=== PATIENT | female | born 1955 | race Caucasian/White ===

== ENCOUNTER → 2017-02-21 | Outpatient (CLI) | payer MEDICAID ==
[~2017-02-21] MED LIST: CIPRO 500MG TA500 MG PO; NOMEDS; PEN-VK500 MG PO; PHENERGAN 25MG.25 M1 PO; PYRIDIUM100 M1 PO; TYLENOL W/CODEI1 TA1 PO
--- NOTE | 2017-02-28 08:43 | RADIOLOGY REPORT PS360 ---
DIG MAMM-SCREEN MARIANELA W/CAD CAD Screening COMPARISON: None, patient had mammograms more than 10 years ago but not sure where there were done INDICATION: There is a history of breast cancer in the patient's paternal cousin TECHNIQUE: Standard CC and MLO images were obtained. R2 CAD reviewed. FINDINGS: Moderate fibroglandular densities are seen in the central portions and subareolar regions of both breasts. There is an asymmetric density right breast best seen on MLO projection with somewhat irregular borders and possibly seen on the cc view as well which I have highlighted on the image. There is a benign-appearing calcination right breast. There are no suspicious microcalcifications. IMPRESSION: Fibrofatty parenchyma with slightly suspicious asymmetric density right breast recommend the patient return for spot compression MLO and CC views and ultrasound for additional evaluation BI-RADS CATEGORY: 0_Incomplete: Need additional imaging RECOMMENDED FOLLOWUP: ADD ADDITIONAL IMAGING (A letter has been sent to the patient regarding results of the study.)
== END ==
LOC: RAD 14:36
DX: Z12.31 Encounter for screening mammogram for malignant neoplasm of breast (principal)
CPT/HCPCS: G0202

== ENCOUNTER → 2017-03-12 | Outpatient (CLI) | payer MEDICAID ==
--- NOTE | 2017-03-12 14:46 | RADIOLOGY REPORT PS360 ---
EXAM: CERVICAL SPINE 4 OR 5 VIEWS HISTORY: NECK PAIN ORDERING PHYSICIAN: MARKUS BOLES PATIENT AGE: 61 years COMPARISON: None FINDINGS: Normal alignment. No fracture or dislocation. There is exaggeration of the cervical lordosis. Foraminal narrowing is present on the left at C3-C4. The right foramina are not well displayed. Mild facet arthritic changes are present. The disc spaces are well-preserved. There may be partial fusion of the facets on the right at C2-C3. IMPRESSION: 1. Mild facet arthritic change with narrowing of the left C3-C4 foramen. 2. Possible partial fusion of the posterior elements on the right at C2-C3 which could be confirmed with CT or MRI clinically warranted
--- NOTE | 2017-03-12 14:47 | RADIOLOGY REPORT PS360 ---
EXAM: THORACIC SPINE-3V SWIMMERS HISTORY: MID BACK PAIN COMPARISON: None FINDINGS: Normal alignment. No fracture or dislocation. No lytic or blastic change. There is mild exaggeration of the thoracic kyphosis with mild degenerative disc disease in mid thoracic spine IMPRESSION: Mild degenerative change, no acute finding
--- NOTE | 2017-03-12 15:01 | RADIOLOGY REPORT PS360 ---
EXAM: LUMBAR SPINE 5 VIEWS HISTORY: MID BACK PAIN ORDERING PHYSICIAN: MARKUS BOELS PATIENT AGE: 61 years COMPARISON: None FINDINGS: Normal alignment. No fracture or dislocation. No lytic or blastic change. There is 3 mm anterolisthesis of L4 on L5. Mild degenerative disc disease is present at L5-S1. Mild facet arthritic changes are also present at L4-5 and L5-S1. IMPRESSION: 1. No acute finding. 2. Lumbar spondylosis with degenerative disc disease at L5-S1 and facet arthritic change at L4-5 and L5-S1
--- NOTE | 2017-03-12 15:01 | RADIOLOGY REPORT PS360 ---
EXAM: LUMBAR SPINE 5 VIEWS HISTORY: MID BACK PAIN ORDERING PHYSICIAN: MARKUS BOLES PATIENT AGE: 61 years COMPARISON: None FINDINGS: Normal alignment. No fracture or dislocation. No lytic or blastic change. There is 3 mm anterolisthesis of L4 on L5. Mild degenerative disc disease is present at L5-S1. Mild facet arthritic changes are also present at L4-5 and L5-S1. IMPRESSION: 1. No acute finding. 2. Lumbar spondylosis with degenerative disc disease at L5-S1 and facet arthritic change at L4-5 and L5-S1
--- NOTE | 2017-03-13 12:39 | RADIOLOGY REPORT PS360 ---
DIG MAMM-DX UNI A/VW-RT W/CAD, US BREAST-RT COMPLETE W/AXILLA COMPARISON: 02/21/2017 INDICATION: Follow-up abnormal mammogram ORDERING PHYSICIAN: MARKUS BOLES PATIENT AGE: 61 years TECHNIQUE: Spot compression views performed along with right breast ultrasound FINDINGS: Scattered fibronodular densities are present in the retroareolar region along with probably benign calcifications. The asymmetric density in the medial aspect of the right breast does appear to compress out as fibroglandular tissue. There was some minimal nodularity in the inferior retroareolar region at 6:00 which does appear to at least partially compress out and is probably related to underlying fibroglandular tissue. No sonographic abnormalities detected in this region. Right breast ultrasound: No sonographic abnormality is apparent. IMPRESSION: Asymmetric density in the medial aspect of the right breast does appear to compress out as fibroglandular tissue. There is some nodularity in the retroareolar region probably benign with no sonographic correlate. BI-RADS CATEGORY: 3_Probably Benign-Short Term F/U RECOMMENDED FOLLOWUP: 6 month mammographic and sonographic follow-up of the right breast (A letter has been sent to the patient regarding results of the study.)
== END ==
LOC: RAD 03-10 13:45
DX: R92.8 Other abnormal and inconclusive findings on diagnostic imaging of breast (principal); M54.2 Cervicalgia; M54.6 Pain in thoracic spine; M54.5 Low back pain
CPT/HCPCS: G0206-RT

== ENCOUNTER → 2017-06-20 | Outpatient (CLI) | payer MEDICAID ==
--- NOTE | 2017-06-22 10:12 | RADIOLOGY REPORT PS360 ---
MRI-C-SPINE W/O, MRI-3D RENDERING/MYELOGRAM HISTORY: NECK PAIN 10 years neck pain and bilateral shoulder and upper back numbness headache. Pain and popping with turning head. Patient Age: 61 years: Female Ordering Physician: MARKUS BOLES TECHNIQUE: Sagittal STIR, T1, T2, axial T1 and T2. On 1.5T Siemens wide bore MRI. 3-D MR myelogram image set obtained & performed on MRI workstation. Additional sagittal thin section T2 weighted dataset obtained from this latter acquisition as well (---76 CPT) COMPARISON :Plain films cervical spine 03/12/2017. FINDINGS The vertebral bodies appear intact and after the disc spaces are fairly well-maintained throughout the Generous volume underlying osseous cervical spinal canal. Generous cervical lordosis with normal caliber and signal at the cervical cord. Cranial cervical junction is normal. Mild degenerative facet changes at the cervical spine. On recent plain films are was question regarding possible fusion C2/3 facets-but on these MR images I these facets appear discrete and are not fused. At C2/3 there is minor posterior endplate hypertrophic ridging to the left, which only slightly indents the thecal sac the left.. Minor encroachment at the entry left foramen.. Mild prominence of posterior elements slightly indents thecal sac and impinge upon posterior cord At C3/4 mild degenerative disc space narrowing posteriorly but no significant hypertrophic ridging or spondylosis.. Posterior element hypertrophy does indent indents the posterior aspect of thecal sac.. At this level. This is nicely reflected on the 3-D MR myelogram image set Mild left foraminal encroachment due to the facet hypertrophy and perhaps scant posterior spurring at foramen which is actually best seen on plain film more than this MR. C4/5 disc intact. There is mild Posterior element prominence/hypertrophy which does indent indents the posterior aspect of thecal sac.. At this level. This is nicely reflected on the 3-D MR myelogram image set is well C5/6. Small tiny central disc protrusion only slightly indents thecal sac. C6/7 disc intact. C7/T1 disc intact. Early minimal anterior marginal osteophytes are seen at C6 and C7 C7/T1 T1-T2 T2/T3 disc intact unremarkable as is T3/T4. 3-D MRI myelogram image set is limited but does show indentation upon the posterior aspect of the thecal sac at C3/4. C4/5 due to the posterior element hypertrophy. Images are somewhat limited otherwise Review of soft tissues suggest 11 mm cyst or nodule at the right lobe of thyroid. Clinical correlation required. Consider follow-up follow-up ultrasound Tiny perineural cyst seen to the left foramen C6/7 and C5-C6. Not of significance. -- IMPRESSION: Minor observations no prominent findings.: Degenerative facet changes throughout the C-spine bilaterally. . The C3/4 facets do not appear to be fused on right as question by plain film. . Subtle increased bone signal left C2 facet could reflect some reactive bone changes, likely due to arthritis At C5-C6 only tiny central disc protrusion.. Doubtful significance At C2/3 with modest hard disc the left only slightly indents thecal sac At C3/4. & C4/5 mild posterior element prominence slightly indents the posterior thecal sac. This along along with scant spurring may yield mild encroachment on left foramen at C3/4. Unimpressive by MRI. Incidental 11 mm right thyroid nodule or cyst
== END ==
LOC: RAD 14:03
DX: M54.2 Cervicalgia (principal)

== ENCOUNTER → 2017-07-18 | Outpatient (CLI) | payer MEDICAID ==
--- NOTE | 2017-07-18 11:57 | RADIOLOGY REPORT PS360 ---
BONE DENSITOMETRY(HIP:LT SPINE HISTORY: POST MENOPAUSAL ORDERING PHYSICIAN: Sonu Tang MD PATIENT AGE: 61 years COMPARISON: None FINDINGS: The BMD measured at the Right femur is 0.792 g/cm squared with a T score of -1.7. This is considered Osteopenic according to the World Health Organization criteria. Fracture risk is Moderate. Treatment is advised. The L1-L4 density has a T score of -1.6 also consistent with osteopenia IMPRESSION: Osteopenia. Moderate fracture risk. Recommend follow-up exam June 2019
--- NOTE | 2017-07-18 13:22 | RADIOLOGY REPORT PS360 ---
US THYROID HISTORY: THYROID CYST ORDERING PHYSICIAN: Sonu Tang MD PATIENT AGE: 61 years COMPARISON: None FINDINGS: Right lobe: 4.4 x 1.3 x 1.5 cm 1.9 x 1.5 cm solid nodule with well-defined margins lower aspect of right lobe with some mild peripheral hypervascularity. Left lobe: 3.8 x 0.9 x 1.3 cm. 4 mm hypoechoic nodule upper pole probably benign. Isthmus: Unremarkable IMPRESSION: 1.9 cm solid nodule lower pole on the right indeterminate. Fine-needle aspiration under sonographic guidance could be performed if clinically desired
--- NOTE | 2017-07-19 05:55 | RADIOLOGY REPORT PS360 ---
MRI-L-SPINE W/O, MRI-3D RENDERING/MYELOGRAM HISTORY: LOW BACK PAIN ORDERING PHYSICIAN: Sonu Tang MD PATIENT AGE: 61 years COMPARISON: Radiograph of 03/12/2017 TECHNIQUE: Standard multiplanar multiecho sequences are performed without contrast. 3-D MIP and myelographic images are also rendered and reviewed FINDINGS: There is normal alignment. The spinal cord ends at the L1 level. T11-T12, T12-L1, L1-L2, and L2-L3 have an unremarkable appearance. L3-L4: Mild facet and ligamentum flavum hypertrophy with minimal bilateral lateral recess narrowing. There is a small area of fluid signal intensity posterior to the L3-L4 facet on the left and may represent a small synovial cyst. L4-5: Mild anterolisthesis of L4 on L5 of 3 mm with bulging disc along with facet and ligamentum flavum hypertrophy with moderate bilateral lateral recess narrowing and mild bilateral foraminal narrowing. The lateral recess narrowing is somewhat more prominent on the right. L5-S1: Mild degenerative disc disease with mild bulging disc eccentric towards the left abutting the anterior aspect of the left S1 nerve root and causing mild left-sided foraminal narrowing. No disc herniation or canal stenosis. IMPRESSION: 1. Bulging disc at L4-5 with moderate bilateral lateral recess narrowing right greater than left and mild bilateral foraminal narrowing with 3 mm anterolisthesis of L4. 2. Degenerative disc disease with bulging disc eccentric towards the left at L5-S1 abutting the left S1 nerve root causing mild left-sided foraminal narrowing 3. Mild bilateral lateral recess narrowing L3-L4 with possible small synovial cyst in the left
== END ==
LOC: RAD 10:00
DX: E04.1 Nontoxic single thyroid nodule (principal); N95.9 Unspecified menopausal and perimenopausal disorder